=== PATIENT | male | born 1995 | race Caucasian/White ===

== ENCOUNTER 2021-07-29 07:54 | Emergency (ER) | payer OTHER, SELFPAY ==
[2021-07-29] VITALS (9 sets, daily range): BP systolic 103–158; BP diastolic 57–92; PULSE 112–137; RESP 13–20; TEMP 36.1; O2SAT 90–98; BMI 25.8
--- NOTE | 2021-07-29 08:02 | W.ED.SOB ---
HPI - SOB/Dyspnea General: Chief Complaint: Shortness of Breath/Dyspnea Stated Complaint: asthma issues Time Seen by Provider: 07/29/21 07:56 Source: patient Mode of arrival: ambulatory Limitations: no limitations History of Present Illness: HPI Narrative: 25-year-old male presents emergency room complaining of wheezing and shortness of breath for the last 2 days. He has nonproductive cough patient is a smoker has a history of asthma but is not on any medications. Has not been using any rescue inhaler or maintenance medication. He is not recently been on any other medications he denies any prescription or [id number]-zaoilox medications. No fever, no chest pain. MD elicited complaint: shortness of breath and cough Pertinent past history: asthma Onset (ago): day(s) (2) Exacerbating factors: exertion and coughing Relieving factors: rest Known history of: asthma Associated symptoms: Reports chest congestion and cough; Deny abdominal pain, chest pain, diaphoresis, dizziness, extremity pain, fever(s), hemoptysis, lightheadedness, myalgias, nausea, orthopnea, palpitations, paresthesias, polydipsia, polyuria, rash, sense of impending doom, syncope or vomiting Treatment prior to arrival: none Review of Systems Const: Denies: fever(s) or diaphoresis ENMT: Denies: throat pain, ear or mastoid pain, nasal discharge or nasal congestion Card: Denies: chest pain, palpitations, lightheadedness, syncope or orthopnea Resp: Reports: chest congestion; Denies: hemoptysis GI: Denies: abdominal pain, nausea or vomiting : Denies: flank pain, dysuria, urinary frequency or urinary urgency Musc: Denies: extremity pain Skin/Breast: Denies: rash or pruritus Neuro: Denies: dizziness Endo: Denies: polyuria or polydipsia PFS ED PFSH: Medical History (Updated 07/29/21 @ 09:34 by Parag Trinidad DO) Asthma Surgical History (Updated 07/29/21 @ 08:06 by Parag Trinidad DO) No pertinent past surgical history Social History (Updated 07/29/21 @ 08:06 by Parag Trinidad DO) Smoking and tobacco status: current every day smoker Physical Exam Const: COMMON NORMALS: no acute distress GENERAL APPEARANCE: cooperative and comfortable ORIENTATION/CONSCIOUSNESS: Yes awake, Yes oriented to person, Yes oriented to place and Yes oriented to time HENMT: COMMON NORMALS: normocephalic, atraumatic and hearing grossly normal bilaterally HEAD & SCALP: normocephalic and atraumatic Neck/C-Spine: COMMON NORMALS: no JVD Resp: COMMON NORMALS: No retractions AUSCULTATION: wheezes and diminished lung sounds Cardio: COMMON NORMALS: no JVD, regular rate, regular rhythm and No murmurs present (Cardio) RATE: regular rate RHYTHM: regular rhythm GI: COMMON NORMALS: Soft to palpation and No hepatosplenomegaly present AUSCULTATION: Yes normoactive bowel sounds PALPATION: Yes Soft to palpation, No Tenderness to palpation present (GI), No Guarding due to palpation present (GI) and Yes No hepatosplenomegaly present Extremity: COMMON NORMALS: normal to inspection, capillary refill normal, no clubbing, cyanosis or edema, no calf tenderness and no pedal edema Neuro: SENSORIUM/ORIENTATION: Yes oriented to person, Yes oriented to place and Yes oriented to time Skin: COMMON NORMALS: no rashes or lesions noted GENERAL SKIN EXAM: no rashes or lesions noted Course Vital Signs: Vital signs: Vital Signs Temperature 97.0 F L 07/29/21 08:03 Pulse Rate 114 H 07/29/21 09:47 Respiratory Rate 16 07/29/21 09:31 Blood Pressure 103/57 07/29/21 09:31 Pulse Oximetry 96 07/29/21 09:47 MDM - SOB/Dyspnea Medical Decision Making After 2 nebulizers wheezing has ceased patient is tachycardic secondary to the albuterol but he states he feels much better he wishes to go home at this point do not think we necessarily need to admit him his oxygen saturations have been good on room air is not required any supplemental oxygen. Will discharge home on a steroid taper albuterol to use as needed and try to get him established with a primary care physician through case management. Return if he has worsening problems. Medical Records I reviewed the patient's medical records. Lab Data I reviewed the patient's lab results. : 07/29/21 08:18 07/29/21 08:43 Labs/Radiology: Radiology Impressions Chest X-Ray 07/29/21 08:07 IMPRESSION: No acute chest abnormality. Laboratory Results WBC 16.9 10^3/uL (4.0-10.0) H 07/29/21 08:18 RBC 5.89 10^6/uL (4.1-5.3) H 07/29/21 08:18 Hgb 17.7 g/dL (11.7-16.6) H 07/29/21 08:18 Hct 50.1 % (42.0-52.0) 07/29/21 08:18 MCV 85.1 fl (80-94) 07/29/21 08:18 MCH 30.1 pg (28.0-34.0) 07/29/21 08:18 MCHC 35.3 g/dL (30.0-36.0) 07/29/21 08:18 RDW 11.9 % (12.1-15.1) L 07/29/21 08:18 Plt Count 285 10^3/cmm (130-400) 07/29/21 08:18 MPV 11.2 fL (7.4-10.4) H 07/29/21 08:18 Neut % (Auto) 79.0 % 07/29/21 08:18 Lymph % (Auto) 10.7 % 07/29/21 08:18 [place] % (Auto) 6.8 % 07/29/21 08:18 Eos % (Auto) 2.7 % 07/29/21 08:18 Baso % (Auto) 0.4 % 07/29/21 08:18 Neut # (Auto) 13.33 10^3/uL (1.8-7.7) H 07/29/21 08:18 Lymph # (Auto) 1.8 10^3/uL (0.8-4.8) 07/29/21 08:18 [place] # (Auto) 1.1 10^3/uL (0.2-0.9) H 07/29/21 08:18 Eos # (Auto) 0.5 10^3/uL (0.0-0.8) 07/29/21 08:18 Baso # (Auto) 0.1 10^3/uL (0.0-0.1) 07/29/21 08:18 Nucleated RBC % (auto) 0 % 07/29/21 08:18 Nucleated RBCs # 0.0 /100WBC 07/29/21 08:18 Specimen Type Arterial 07/29/21 08:27 Sample Site Brachial, right 07/29/21 08:27 ABG pH 7.42 (7.35-7.45) 07/29/21 08:27 ABG pCO2 37.7 mmHg (35-45) 07/29/21 08:27 ABG pO2 62.3 mmHg (80.0-100.0) L 07/29/21 08:27 ABG HCO3 24.4 mmol/L (22-26) 07/29/21 08:27 ABG O2 Saturation 92.5 07/29/21 08:27 ABG Base Excess 0.2 mmol/L (-2.0-2.0) 07/29/21 08:27 [place] Test Pos 07/29/21 08:27 A-a O2 Gradient 5.2 mmHg (5-10) 07/29/21 08:27 Hematocrit 55.3 % (42-52) H 07/29/21 08:27 Hgb O2 Saturation 91.7 % (95-100) L 07/29/21 08:27 Carboxyhemoglobin 0.7 %THgb (0.4-20.1) 07/29/21 08:27 Methemoglobin 0.2 % (0.4-1.5) L 07/29/21 08:27 Total Hemoglobin 18.0 g/dL (14-18) 07/29/21 08:27 Sodium 142.0 mmol/L (131-143) 07/29/21 08:27 Potassium 3.6 mmol/L (3.5-5.0) 07/29/21 08:27 Glucose 118.0 mg/dL (70-115) H 07/29/21 08:27 Ionized Calcium 1.2 mmol/L (1.1-1.4) 07/29/21 08:27 O2 Delivery Device Room air 07/29/21 08:27 FiO2 21.0 % 07/29/21 08:27 Dicer Operator ID [place] 07/29/21 08:27 Sodium 139 mmol/L (136-145) 07/29/21 08:43 Potassium 3.9 mmol/L (3.5-5.1) 07/29/21 08:43 Chloride 105 mmol/L (98-107) 07/29/21 08:43 Carbon Dioxide 21 mmol/L (22-29) L 07/29/21 08:43 Anion Gap 16.9 (5-19) 07/29/21 08:43 BUN 6 mg/dL (6-20) 07/29/21 08:43 Creatinine 0.7 mg/dL (0.7-1.2) 07/29/21 08:43 GFR Calculation 137.4 mL/min (90-130) H 07/29/21 08:43 Glucose 128 mg/dL (65-115) H 07/29/21 08:43 Calculated Osmolality 287 mOsm/kg (285-295) 07/29/21 08:43 Calcium 9.3 mg/dL (8.5-10.5) 07/29/21 08:43 Discharge Plan Discharge Patient Disposition: Home Clinical Impression: Asthma with exacerbation Condition: Stable Prescriptions: New albuterol sulfate 90 mcg/actuation HFA aerosol inhaler 2 inh INHALATION Q4H PRN (Reason: shortness of breath or wheezing) Qty: 18 0RF Medrol (Aristides) 4 mg tablets,dose pack See Rx Instructions .ROUTE .COMPLEX Qty: 21 0RF Rx Instructions: orally per package directions Discharge Orders: Discharge ED (Routine); Ordered 07/29/21 Ordered By: Parag Trinidad Patient Instructions: Opioid Safety Activity Restrictions/Additional Instructions: Case management will help make arrangements for you to establish with a primary care physician return if you have further problems. Coding Level of Care Code ED Refrigeration Plant Cork Insulator for Jennifer Fwd Exam Comprehensive
--- NOTE | 2021-07-29 08:07 | XR_ITS ---
WS: [id number] XR chest 1V portable [id number] REASON FOR EXAM: dyspnea/cough FINDINGS: The chest is unchanged compared to 05/27/2016. The heart and mediastinum are within normal limits. Calcified granulomatous disease in both hemithoraces. No acute pulmonary parenchymal or pleural abnormality. Bony thorax is intact with no focal abnormality. XR/XR chest 1V portable [id number] IMPRESSION: No acute chest abnormality.
[2021-07-29 08:28] LABS: Basophils # 0.1 10^3/uL (0.0-0.1); Basophils % 0.4 %; Eosinophils # 0.5 10^3/uL (0.0-0.8); Eosinophils % 2.7 %; Hematocrit 50.1 % (42.0-52.0); Hemoglobin 17.7 g/dL (11.7-16.6); Lymphocytes # 1.8 10^3/uL (0.8-4.8); Lymphocytes % 10.7 %; Mean Corpuscular HGB Conc 35.3 g/dL (30.0-36.0); Mean Corpuscular Hemoglobin 30.1 pg (28.0-34.0); Mean Corpuscular Volume 85.1 fl (80-94); Mean Platelet Volume 11.2 fL (7.4-10.4); Monocytes # 1.1 10^3/uL (0.2-0.9); Monocytes % 6.8 %; Neutrophils # 13.33 10^3/uL (1.8-7.7); Nucleated Red Blood Cells % 0 %; Platelet Count 285 10^3/cmm (130-400); Red Blood Count 5.89 10^6/uL (4.1-5.3); Red Cell Distribution Width 11.9 % (12.1-15.1); White Blood Count 16.9 10^3/uL (4.0-10.0)
[2021-07-29] MEDS: ipratropium-albuterol 3 mL Neb INHALATION ×2 (08:35→09:24)
[2021-07-29 08:39] LABS: ABG PCO2 37.7 mmHg (35-45); ABG PH Result 7.42 (7.35-7.45); Alveolar-Arterial Oxygen Gradi 5.2 mmHg (5-10); Arterial Blood Gas Hematocrit 55.3 % (42-52); Base Excess ABG 0.2 mmol/L (-2.0-2.0); Blood Gas Allen Test Pos; Blood Gas Operator Identificat MONRO; Blood Gas Sample Site Brachial, right; Blood Gas Sample Type Arterial; Carboxyhemoglobin 0.7 %THgb (0.4-20.1); HCO3 ABG 24.4 mmol/L (22-26); HGB O2 Sat 91.7 % (95-100); Ionized Calcium Level - ABG 1.2 mmol/L (1.1-1.4); Methemoglobin 0.2 % (0.4-1.5); Oxygen Device ROOM AIR; Oxygen Saturation ABG 92.5; PO2 ABG 62.3 mmHg (80.0-100.0); Potassium Level - ABG 3.6 mmol/L (3.5-5.0)
[2021-07-29 09:15] LABS: Anion Gap 16.9 (5-19); Blood Urea Nitrogen 6 mg/dL (6-20); Calcium 9.3 mg/dL (8.5-10.5); Carbon Dioxide 21 mmol/L (22-29); Chloride 105 mmol/L (98-107); Glomerular Filtration Rate 137.4 mL/min (90-130); Glucose 128 mg/dL (65-115); Osmolality Calculated 287 mOsm/kg (285-295); Potassium 3.9 mmol/L (3.5-5.1); Sodium 139 mmol/L (136-145)
== END 2021-07-29 09:46 | disposition home or self-care (01) ==
PROVIDERS: Emergency Provider Family Medicine
DX: J45.901 Unspecified asthma with (acute) exacerbation (principal); F17.200 Nicotine dependence, unspecified, uncomplicated
CPT/HCPCS: 36600; 71045; 80048; 80051; 82330; 82805; 85025; 94640; 99284

== ENCOUNTER 2022-02-06 01:50 | Emergency (ER) | payer OTHER, SELFPAY ==
[2022-02-06 01:53] VITALS: BP 149/99; PULSE 86; RESP 16; TEMP 36.6; O2SAT 97
--- NOTE | 2022-02-06 01:57 | XRR_ITS ---
PROCEDURE INFORMATION: Exam: XR Chest Exam date and time: 02/06/2022 2:07 AM Age: 26 years old Clinical indication: Cough; Additional info: SOB TECHNIQUE: Imaging protocol: Radiologic exam of the chest. Views: 1 view. COMPARISON: CR XR chest 1V portable [id number] 07/29/2021 8:30 AM FINDINGS: Lungs: Unremarkable. No consolidation. Pleural spaces: Unremarkable. No pleural effusion. No pneumothorax. Heart/Mediastinum: Unremarkable. No cardiomegaly. Bones/joints: Unremarkable. XR/XR chest 1V portable [id number] IMPRESSION: No acute findings.
--- NOTE | 2022-02-06 01:59 | W.ED.ASTHMA ---
HPI - Asthma General: Chief Complaint: Asthma Stated Complaint: sob Time Seen by Provider: 02/06/22 01:52 Source: patient Mode of arrival: ambulatory Limitations: no limitations History of Present Illness: 26-year-old male has a history of asthma states has had increased cough over the last 2 days states his sputum is changed color as well. He states he has been out of his albuterol inhaler for quite some time he has had some increased wheezing denies any fever denies any severe shortness of breath. Associated symptoms: Reports productive cough; Deny chest pain or fever(s) Review of Systems Const: Denies: fever(s), chills, body aches or change in appetite Eyes: Denies: blurry vision or eye discomfort ENMT: Denies: throat pain or dental pain Card: Denies: chest pain Resp: Reports: productive cough and wheezing GI: Denies: abdominal pain, nausea, vomiting or diarrhea : Denies: dysuria Musc: Denies: neck pain or back pain Skin/Breast: Denies: rash Neuro: Denies: headache(s) Psych: Denies: depression Danis/Lymph: Denies: easy bruising All/Imm: Denies: urticaria PFSH ED PFSH: Medical History Asthma Surgical History No pertinent past surgical history Social History Smoking and tobacco status: current every day smoker Physical Exam Const: COMMON NORMALS: no acute distress, patient oriented x3 and healthy appearing HENMT: COMMON NORMALS: normocephalic and atraumatic HEAD & SCALP: normocephalic and atraumatic Eye: COMMON NORMALS: Equal, round and reactive pupils present and EOMs intact bilaterally PUPIL: Yes Equal, round and reactive pupils present Neck/C-Spine: COMMON NORMALS: full ROM and supple Chest: COMMONS NORMALS: normal inspection of the chest and normal palpation of entire chest wall Resp: COMMON NORMALS: normal respiratory effort, No retractions and No use of accessory muscles AUSCULTATION: wheezes Cardio: COMMON NORMALS: regular rate, regular rhythm and No murmurs present (Cardio) RATE: regular rate RHYTHM: regular rhythm GI: COMMON NORMALS: Normal to inspection, nondistended, normoactive bowel sounds present, Soft to palpation, non-tender and no masses PALPATION: Yes Soft to palpation Extremity: COMMON NORMALS: normal to inspection and full ROM Neuro: COMMON NORMALS: patient oriented x3, moves all extremities and no focal motor deficits Psych: COMMON NORMALS: mental status grossly normal, Normal thought process present and cooperative THOUGHT PROCESS: Normal thought process present Skin: COMMON NORMALS: no rashes or lesions noted and no wounds GENERAL SKIN EXAM: no rashes or lesions noted Course Vital Signs: Vital signs: Vital Signs Temperature 97.9 F 02/06/22 01:53 Pulse Rate 86 02/06/22 01:53 Respiratory Rate 16 02/06/22 01:53 Blood Pressure 149/99 02/06/22 01:53 Pulse Oximetry 97 02/06/22 01:53 Oxygen Delivery Me thod 02/06/22 01:53 MDM - Asthma Medical Decision Making Patient presents here with cough and wheezing likely asthma exacerbation x-ray shows no signs pneumonia he is afebrile here we will prescribe him inhaler he is given Decadron he is in no distress he stable for discharge she is to follow-up PCP and return if worsening Discharge Plan Discharge Patient Disposition: Home Clinical Impression: Asthma with acute exacerbation Condition: Stable Prescriptions: New albuterol sulfate 90 mcg/actuation HFA aerosol inhaler 2 inh INHALATION Q6H PRN (Reason: shortness of breath or wheezing) Qty: 8 0RF No Action albuterol sulfate 90 mcg/actuation HFA aerosol inhaler 2 inh INHALATION Q4H PRN (Reason: shortness of breath or wheezing) Qty: 18 0RF Medrol (Aristides) 4 mg tablets,dose pack See Rx Instructions .ROUTE .COMPLEX Qty: 21 0RF Rx Instructions: orally per package directions Discharge Orders: Discharge ED (Routine); Ordered 02/06/22 Ordered By: Taryn Poole Discharge Diet: Advance as tolerated Discharge Activity: Resume usual activity Patient Instructions: Asthma Exacerbation - Adult Coding Level of Care Code ED Tube Cleaner for Chg Fwd Exam Comprehensive
[2022-02-06] MEDS: dexamethasone 10 mg/mL INJ IM (02:07)
[2022-02-06 02:10] VITALS: PULSE 78; RESP 18; O2SAT 96
[2022-02-06] MEDS: albuterol 8 gm MDI 2 PUFF INHALATION (02:10)
== END 2022-02-06 02:20 | disposition home or self-care (01) ==
PROVIDERS: Emergency Provider Emergency Medicine
DX: J45.901 Unspecified asthma with (acute) exacerbation (principal); F17.210 Nicotine dependence, cigarettes, uncomplicated
CPT/HCPCS: 71045; 94640; 96372; 99284; J1100; J3535

== ENCOUNTER 2023-03-31 21:36 | Emergency (ER) | payer OTHER, SELFPAY ==
[2023-03-31 21:44] VITALS: BP 142/88; PULSE 84; RESP 18; TEMP 37.1; O2SAT 97; BMI 25.8
--- NOTE | 2023-03-31 21:53 | W.ED.DENTAL ---
HPI - Dental/Oral General: Chief complaint: Dental/Oral Stated complaint: dental pain Time Seen by Provider: 03/31/23 21:38 Source: patient Mode of arrival: ambulatory Limitations: no limitations History of Present Illness: 27-year-old male who states been having right lower dental pain over the last 2 to 3 days he states he had a history of poor dentition with dental infection has not been able to see a dentist. States that he believes he has an abscess that is draining as he can taste purulent material at times. Denies any fever denies any trismus. Associated symptoms: Denies fever(s) Review of Systems Const: Denies: fever(s), chills, body aches or change in appetite ENMT: Reports: mouth pain; Denies: throat pain or dental pain Card: Denies: chest pain Resp: Denies: dyspnea GI: Denies: abdominal pain, nausea, vomiting or diarrhea Musc: Denies: neck pain or back pain Skin/Breast: Denies: rash Neuro: Denies: headache(s) PFSH ED PFSH: Medical History Asthma Surgical History No pertinent past surgical history Social History Smoking and tobacco/nicotine status: current every day tobacco/nicotine user Physical Exam Const: COMMON NORMALS: no acute distress, patient oriented x3 and healthy appearing HENMT: COMMON NORMALS: normocephalic and atraumatic HEAD & SCALP: normocephalic and atraumatic OTHER: Poor dentition he has tenderness over right lower molar he does have an abscess it is open and draining currently no trismus Neck/C-Spine: COMMON NORMALS: full ROM and supple Chest: COMMONS NORMALS: normal inspection of the chest Resp: COMMON NORMALS: normal respiratory effort Extremity: COMMON NORMALS: normal to inspection and full ROM Neuro: COMMON NORMALS: patient oriented x3, moves all extremities and no focal motor deficits Psych: COMMON NORMALS: mental status grossly normal, Normal thought process present and cooperative THOUGHT PROCESS: Normal thought process present Skin: COMMON NORMALS: no rashes or lesions noted and no wounds GENERAL SKIN EXAM: no rashes or lesions noted Course Vital Signs: Vital signs: Vital Signs Temperature 98.8 F 03/31/23 21:44 Pulse Rate 84 03/31/23 21:44 Respiratory Rate 18 03/31/23 21:44 Blood Pressure 142/88 03/31/23 21:44 Pulse Oximetry 97 03/31/23 21:44 Oxygen Delivery Me thod Room Air 03/31/23 21:44 MDM - Dental/Oral Medical Decision Making Patient presents here with a dental abscess that is already open and draining we will place him on antibiotics he is to follow-up with a dentist he has no trismus he is stable for discharge return if worsening Medical Records I reviewed the patient's medical records. No radiology studies performed this visit Discharge Plan Discharge Patient Disposition: Home Clinical Impression: Dental abscess Condition: Stable Prescriptions: New cephalexin 500 mg capsule 500 mg PO TID 7 Days Qty: 21 0RF naproxen [Naprosyn] 500 mg tablet 500 mg PO BID PRN (Reason: pain) Qty: 20 0RF No Action albuterol sulfate 90 mcg/actuation HFA aerosol inhaler 2 inh INHALATION Q4H PRN (Reason: shortness of breath or wheezing) Qty: 18 0RF Medrol (Aristides) 4 mg tablets,dose pack See Rx Instructions .ROUTE .COMPLEX Qty: 21 0RF Rx Instructions: orally per package directions albuterol sulfate 90 mcg/actuation HFA aerosol inhaler 2 inh INHALATION Q6H PRN (Reason: shortness of breath or wheezing) Qty: 8 0RF Discharge Orders: Discharge ED (Routine); Ordered 03/31/23 Ordered By: Taryn Poole Referrals: Kevin Grady MD [Primary Care Provider] - Discharge Diet: Advance as tolerated Discharge Activity: Resume usual activity Patient Instructions: Dental Abscess (ED) Coding Level of Care Code ED Desktop Publishing Associate for Jennifer Gregory
[2023-03-31] MEDS: HYDROcodone-acetaminophen 5-325 mg Tablet 1 TAB PO (22:16)
[2023-03-31 22:20] VITALS: RESP 18
== END 2023-03-31 22:21 | disposition home or self-care (01) ==
PROVIDERS: Emergency Provider Emergency Medicine; PCP Family Medicine
DX: K04.7 Periapical abscess without sinus (principal)
CPT/HCPCS: 99283

== ENCOUNTER 2023-11-20 18:12 | Emergency (ER) | payer OTHER, SELFPAY ==
[2023-11-20 18:17] VITALS: BP 147/87; PULSE 66; RESP 17; TEMP 36.8; O2SAT 95; BMI 25.1
--- NOTE | 2023-11-20 18:27 | W.ED.DENTAL ---
HPI - Dental/Oral General: Chief complaint: Dental/Oral Stated complaint: tooth jaw pain right side Time Seen by Provider: 11/20/23 18:22 Source: patient Mode of arrival: ambulatory Limitations: no limitations History of Present Illness: Patient is a 28-year-old male presenting to the emergency department complaining of right lower dental pain onset last couple of days. Patient reports history of dental abscess, states this feels the same. He does not see a dentist and has not scheduled any appointments to this date. He notes that he has a history of a feeling that busted open and since this has caused pain chronically in the right lower dentition. He states pain is starting to creep into the right side of his face towards his ear. Denies any fever, vomiting, or any other symptoms at this time. MD Complaint: tooth pain Onset (ago): day(s) Duration: constant Severity: severe Relieving factors: nothing Context: history of dental caries and poor dental care Associated symptoms: Denies fever(s) Treatment prior to arrival: none Review of Systems General: Reports: 10 or more systems reviewed and unremarkable except in HPI and below Const: Denies: fever(s), chills or fatigue Eyes: Denies: change in vision ENMT: Reports: dental pain and sinus pain; Denies: throat pain or nasal discharge Card: Denies: chest pain, palpitations, swelling of feet/ankles or lightheadedness Resp: Denies: dyspnea, productive cough or wheezing GI: Denies: abdominal pain, nausea, vomiting, diarrhea or constipation : Denies: flank pain, difficulty urinating, dysuria or urinary frequency Musc: Denies: neck pain, back pain or joint pain Skin/Breast: Denies: rash Neuro: Denies: headache(s), numbness in extremities or weakness in extremities PFSH ED PFSH: Medical History Smoker unmotivated to quit Stress due to illness of family member Asthma Surgical History No pertinent past surgical history Family History Father Heart attack Mother Cancer COPD (chronic obstructive pulmonary disease) Emphysema lung Social History (Reviewed 11/20/23 @ 18:28 by NAINA Rodriguez Smoking and tobacco/nicotine status: current every day tobacco/nicotine user Quit status (tobacco/nicotine): not considering quitting Alcohol intake: current Alcohol intake frequency: holidays/special occasions only Alcohol type: beer, wine and hard liquor Substance/Drug Use: former Physical Exam Const: COMMON NORMALS: no acute distress and no limitations GENERAL APPEARANCE: cooperative and well developed ORIENTATION/CONSCIOUSNESS: Yes awake HENMT: COMMON NORMALS: normocephalic, atraumatic and hearing grossly normal bilaterally HEAD & SCALP: normocephalic and atraumatic TEETH & GINGIVA: Yes abnormal tooth and associated gingiva lower right tender, with associated gingival edema and dentin fractured, Yes caries, Yes multiple restorations and Yes poor dentition Eye: COMMON NORMALS: EOMs intact bilaterally and conjunctivae normal CONJUNCTIVA: Yes conjunctivae normal Neck/C-Spine: COMMON NORMALS: full ROM, supple and no JVD Resp: COMMON NORMALS: normal respiratory effort, No retractions, No use of accessory muscles and clear to auscultation bilaterally AUSCULTATION: clear to auscultation bilaterally Cardio: COMMON NORMALS: no JVD, regular rate, regular rhythm, No clicks present (Cardio), No murmurs present (Cardio) and No rub (Cardio) RATE: regular rate RHYTHM: regular rhythm Extremity: COMMON NORMALS: normal to inspection, full ROM and capillary refill normal Psych: COMMON NORMALS: mental status grossly normal and Normal thought process present THOUGHT PROCESS: Normal thought process present Skin: COMMON NORMALS: no rashes or lesions noted GENERAL SKIN EXAM: no rashes or lesions noted Course Vital Signs: Vital signs: Vital Signs Temperature 98.2 F 11/20/23 18:17 Pulse Rate 66 11/20/23 18:17 Respiratory Rate 17 11/20/23 18:17 Blood Pressure 147/87 11/20/23 18:17 Pulse Oximetry 95 11/20/23 18:17 Oxygen Delivery Me thod Room Air 11/20/23 18:17 [facility] - Dental/Oral Medical Decision Making Patient presented with right lower dentition pain that has been evolving over the past few days. History of same, states he was diagnosed with dental abscess and this was cured with antibiotics. Does not see a dentist. Will start antibiotic therapy as on examination he does have signs and symptoms of this, however I do believe some of his pain may be related to fracture of the tooth in the right lower dentition. He is instructed to call and schedule appointment with dentist as soon as possible, will also add topical lidocaine for added relief. Return precautions given. No radiology studies performed this visit Discharge Plan Discharge Patient Disposition: Home Clinical Impression: Dental abscess, Fracture of tooth Condition: Stable Prescriptions: New amoxicillin-pot clavulanate 875-125 mg tablet 1 tab PO BID 10 Days Qty: 20 0RF Lidocaine Viscous 2 % solution 1 applic mucous membrane DAILY PRN (Reason: pain) Qty: 100 0RF No Action albuterol sulfate 90 mcg/actuation HFA aerosol inhaler 2 inh INHALATION Q6H PRN (Reason: shortness of breath or wheezing) Qty: 8.5 1RF Naprosyn 500 mg tablet 500 mg PO BID PRN (Reason: pain) Qty: 20 0RF Discharge Orders: Discharge ED (Routine); Ordered 11/20/23 Ordered By: Georges Richardson Referrals: Jose Rose MD [Primary Care Provider] - Discharge Diet: Usual diet Discharge Activity: Increase activity as tolerated Patient Instructions: Dental Abscess (ED) Activity Restrictions/Additional Instructions: Take Augmentin as prescribed. Apply lidocaine. Tylenol/ibuprofen for pain relief. Please call dentist to schedule an appointment. Return with any new or concerning symptoms. Coding Level of Care Code ED Lighter for Jennifer Gregory
== END 2023-11-20 18:40 | disposition home or self-care (01) ==
PROVIDERS: Emergency Provider Physician Assistant; PCP Family Medicine Adult Medicine
DX: K04.7 Periapical abscess without sinus (principal); S02.5XXA Fracture of tooth (traumatic), initial encounter for closed fracture; Z72.0 Tobacco use; X58.XXXA Exposure to other specified factors, initial encounter
CPT/HCPCS: 99283